=== PATIENT | female | born 1960 | race Caucasian/White ===

== ENCOUNTER 2022-05-23 08:39 | Emergency (ER) | payer OTHER ==
--- OUTSIDE RECORDS SUMMARY | 2022-05-23 08:42 | XMS REPORT | Continuity of Care Document ---
:1960 Author Organization [facility] t Address [address] [place] [address] Dr. [address]. [address] [place] [address] Care Team Providers Name Role Phone Asked, No Pcp Primary Care Physician Unavailable Jayesh FRANCO, Aracely Moreno Attending Clinician Messi FRANCO, Rubina Hennessy Attending Clinician Lolly Gandhi CRNA Attending Clinician [phone] Paco FRANCO, Phyllis Lyon Attending Clinician Jakob FRANCO, Belkis Attending Clinician Fernando FRANCO, George Wang Attending Clinician Danette Mott CRNA Attending Clinician ARACELY ALCANTAR Admitting Clinician Unavailable ATTJOAQUIN, BELKIS Admitting Clinician Unavailable Payers Payer Name Policy Type Policy Number Effective Date Expiration Date S ource Problems Condition Condition Condition Status Onset Resolution Last Treating Co mments Source Name Details Category Date Date Treatment Clinician Date Bronchiect Bronchiect Disease Active M ethodi asis with asis with 9 st acute acute 00:00: Hospita exacerbati exacerbati 00 l on on CHF CHF Disease Active [facility] (congestiv (congestiv 9 st e heart e heart 00:00: Hospita failure) failure) 00 l COPD COPD Disease Active [facility] (chronic (chronic 03-24 st obstructiv obstructiv 00:00: Ho spita e e 00 l pulmonary pulmonary disease) disease) Coronary Coronary Disease Active Metho di artery artery 03-24 st disease disease 00:00: Hospita involving involving 00 l grindstone grindstone coronary coronary artery artery Pulmonary Pulmonary Disease Active Met hodi hypertensi hypertensi 03-24 st on on 00:00: Hospita 00 l H/O mitral H/O mitral Disease Active M ethodi valve valve 03-24 st repair repair 00:00: Hospita 00 l Bronchitis Bronchitis Disease Active M ethodi 03-24 st 00:00: Hospita 00 l Allergies, Adverse Reactions, Alerts This patient has no known allergies or adverse reactions. Family History Family Member Diagnosis Comments Start Date Stop Date Source Natural father Lung disease [facility] Natural mother Heart disease [facility] Social History Social Habit Start Date Stop Date Quantity Comments Source History of Current smoker [facility] use Hospital Tobacco use and 2022-05-10 2022-05-10 Smokeless tobacco [facility] exposure 00:00:00 00:00:00 non-user Hospital Alcohol intake 2022-05-10 2022-05-10 Current drinker [facility] dist 00:00:00 00:00:00 of alcohol Hospital (finding) Sex Assigned At [birth year] [facility] 00:00:00 00:00:00 Hospital Smoking Status Start Date Stop Date Source Ex-smoker 2022-05-10 00:00:00 2022-05-10 00:00:00 [facility] Medications Ordered Filled Start Stop Current Ordering Indication Dosage Frequency Signature Comments Components Source Medication Medication Date Date Medication? Clinician (SIG) Name Name digOXIN 2021-07 Yes 125ug QD Take 1 [facility] (LANOXIN) 1-[address] 125 mcg 14:25: (125 mcg Hospit a (0.125 mg) 03 total) by l tablet mouth every morning. furosemide 2021-07 Yes 40mg QD Take 1 Metho di (LASIX) 40 1-08 tablet (40 st mg tablet 14:25: mg total) Hos fior 03 by mouth l daily. albuterol 2021-07 Yes 2{puff} Q6H Inhale 2 M ethodi (PROAIR 1-[address] HFA) 90 14:25: every 6 Hospita mcg/actuati 03 (six) l on inhaler hours as needed for wheezing. budesonide- 2021-07 Yes 2{puff} Q.5D Inhale 2 [facility] glycopyr-fo -[address] rmoterol 14:25: (two) Hospita (Breztri 03 times a l Aerosphere) day. 160-9-4.8 mcg/actuati on HFA aerosol inhaler verapamil 2021-07 Yes 120mg QD Take 1 [facility] di sustained -[address] release 14:25: (120 mg Hospita (CALAN-SR) 03 total) by l 120 MG SR mouth tablet every morning. apixaban 2021-07- No 5mg Q.5D Take 1 Method i (ELIQUIS) 5 07-11 11-07 tablet (5 st mg tablet 14:25: 00:00 mg total) Ho spita 03 :00 by mouth 2 l (two) times a day. metoprolol 2021-07 Yes 50mg QD Take 1 Metho di tartrate -07 tablet (50 st (LOPRESSOR) 14:49: mg total) H ospita 50 mg 33 by mouth l tablet every morning. sildenafil, 2021-07 Yes 20mg [id number] Take 20 mg [facility]i antihyperte -07 [id number] by mouth 3 [address] nsive, 14:49: 3D (three) Hospita (REVATIO) 33 times a l 20 mg day. tablet spironolact 2021-07 Yes 50mg QD Take 50 mg [facility] one [address] (ALDACTONE) 14:49: daily. [facility]osp [facility] 50 MG 33 l tablet warfarin 2021-07 Yes 5mg QD Take 1 [facility] (COUMADIN) 07 tablet (5 st 5 MG tablet 00:00: mg total) H ospita 00 by mouth l daily. Take 1 tablet (5mg) by mouth daily for 30 days. verapamiL 2021-07 No 120mg QD Take 1 Meth channing (CALAN) 120 07-07- tablet st MG tablet 15:45: 00:00 (120 mg [facility]osp [facility] 49 :00 total) by l mouth every morning. ALBUTEROL 2021-07- No 2{puff} Inhale 2 [facility] SULFATE 07-07-[address] INHL 15:45: 00:00 needed. Hospita 49 :00 l tiotropium No 1{capsu QD Place 1 [facility] (SPIRIVA) 09-09 le} capsule st 18 mcg per 11:00: 00:00 into Hospit a inhalation 09 :00 inhaler l capsule and inhale once daily. furosemide 40mg QD Take 40 mg [facility] (LASIX) 40 09-[address] mg tablet 11:00: 00:00 daily. Hospi ta 05 :00 l Vital Signs Vital Name Observation Time Observation Value Comments Source Systolic blood 2022-05-10 19:45:00 112 mm[Hg] [facility] pressure Diastolic blood 2022-05-10 19:45:00 53 mm[Hg] [facility] pressure Heart rate 2022-05-10 19:45:00 51 /min [facility] Respiratory rate 2022-05-10 19:45:00 21 /min [facility] Oxygen saturation in 2022-05-10 19:45:00 93 /min [facility] Arterial blood by Pulse oximetry Body temperature 2022-05-10 19:00:00 35.83 Gloria [facility] Body height 2022-05-10 16:25:00 170.2 cm [facility] Body weight 2022-05-10 16:25:00 59.013 kg [facility] BMI 2022-05-10 16:25:00 20.38 kg/m2 [facility] Procedures Procedure Date / Time Performing Clinician Source Performed EP ELECTROPHYSIOLOGY 2022-05-10 18:45:00 [facility] PROCEDURE ECG PRE/POST OP 2022-05-10 16:37:14 [facility] TYPE AND SCREEN 2022-05-10 16:35:00 [facility] MAGNESIUM LEVEL 2022-05-06 16:05:00 [facility] HC COMPLETE BLD COUNT 2022-05-06 16:05:00 [facility] W/AUTO DIFF COMPREHENSIVE METABOLIC 2022-05-06 16:05:00 [facility] PANEL ESTIMATED GFR 2022-05-06 16:05:00 [facility] COVID-19 QUALITATIVE RT-PCR 2022-05-06 16:05:00 [facility] PROTHROMBIN TIME WITH INR 2022-05-06 16:05:00 [facility] XR CHEST 2 VW 2021-12-22 21:16:00 Phyllis Antonio [facility] ECHOCARDIOGRAM 2021-09-09 19:23:58 Bel[facility] TRANSESOPHAGEAL W DOPPLER COLORFLOW ESTIMATED GFR 2021-09-09 17:08:00 [facility] POC PANEL 2021-09-09 17:08:00 Kenny Robertammed [facility] Plan of Care Planned Activity Planned Date Details Comments Source Future Scheduled 2022-05-13 HEPATITIS B VACCINES [facility] Test 09:23:15 (1 of 3 - 3-dose series) [code = HEPATITIS B VACCINES (1 of 3 - 3-dose series)] Future Scheduled 2022-05-13 COVID-19 VACCINE (#1) [facility] Test 09:23:15 [code = COVID-19 VACCINE (#1)] Future Scheduled 2022-05-13 Pneumococcal Vaccine: [facility] Test 09:23:15 Pediatrics (0 to 5 Years) and At-Risk Patients (6 to 64 Years) (1 - PCV) [code = Pneumococcal Vaccine: Pediatrics (0 to 5 Years) and At-Risk Patients (6 to 64 Years) (1 - PCV)] Future Scheduled 2022-05-13 Hepatitis C screening [facility] Test 09:23:15 (procedure) [code = 682034756] Future Scheduled 2022-05-13 Screening for [facility] Test 09:23:15 malignant neoplasm of cervix (procedure) [code = 260785415] Future Scheduled 2022-05-13 BREAST CANCER [facility] Test 09:23:15 SCREENING [code = BREAST CANCER SCREENING] Future Scheduled 2022-05-[address] [facility] Test 09:23:15 [code = COLONOSCOPY SCREENING] Future Scheduled 2022-05-13 SHINGLES VACCINES (1 [facility] Test 09:23:15 of 2) [code = SHINGLES VACCINES (1 of 2)] Future Scheduled 2022-05-13 [facility]ACCINE [facility] Test 09:23:15 [code = INFLUENZA VACCINE] Encounters Start End Encounter Admission Attending Care Care Encounter Source Date/Time Date/Time Type Type Clinicians Facility Department ID 2022-05-10 2022-05-10 Surgery Aracely Alcantar 1.2.840.1 [id number] [facility] 12:00:00 16:15:[id number] 3.430.2.7 Hospit a .3.855949 l .8 2022-05-10 2022-05-10 [facility] Aracely Alcantar 1.2.840.1 [id number] [facility] 10:21:00 14:25:00 Encounter Josh 58356.1.[address] 3.430.2.7 Hospit a .3.892397 l .8 2022-05-10 2022-05-10 Anesthesia Rubina Swenson 1.2.840. 1 [id number] [facility] 11:58:00 13:07:00 Event Lolly Gandhi 62862.1.[address] 3.430.2.7 Hospit a .3.357805 l .8 2022-05-10 2022-05-10 Outpatient ARACELY ALCANTAR [facility] [id number] Breaks 00:00:00 00:00:[address] 2022-05-10 2022-05-10 Travel 1.2.840.1 1.2.202.442 [id number] Method[facility] 00:00:00 00:00:[address] 3.430.2.7 0.2.7.3.698 Ho spita .3.461326 084.8 l .8 2022-05-06 2022-05-06 Lab Aracely Alcantar 1.2.840.1 [id number] [facility] 10:40:00 10:45:[address] 3.430.2.7 Hospit a .3.557096 l .8 2022-05-06 2022-05-06 Travel 1.2.840.1 1.2.293.035 [id number] [facility] 00:00:00 00:00:[address] 3.430.2.7 0.2.7.3.698 Ho spita .3.054068 084.8 l .8 2022-05-06 2022-05-06 Outpatient ARACELY ALCANTAR [facility] [id number] Breaks 00:00:00 00:00:[address] 2022-03-12 2022-03-12 [facility] Aracely Alcantar 1.2.840.1 [id number] [facility] 00:00:00 00:00:00 Orders Josh 03005.1.[address] 3.430.2.7 Hospit a .3.788371 l .8 2021-12-22 2021-12-22 [facility], 1.2.840.1 [id number] Method[facility] 16:00:00 23:59:00 Encounter Phyllis 77064.1.[address] [place] 3.430.2.7 Hospit a .3.129054 l .8 2021-12-22 2021-12-22 Travel 1.2.840.1 1.2.056.464 [id number] [facility] 00:00:00 00:00:[address] 3.430.2.7 0.2.7.3.698 Ho spita .3.717646 084.8 l .8 2021-12-22 2021-12-22 Transcribe [facility] 1.2.840.1 [id number] Method[facility] 00:00:00 00:00:00 Orders Phyllis 02491.1.[address] [place] 3.430.2.7 Hospit a .3.765508 l .8 2021-12-22 2021-12-22 Outpatient [facility] [id number] Breaks 00:00:00 00:00:00 PHYLLIS [address] 2021-09-09 2021-09-09 Hospital Attar, 1.2.840.1 [id number] Method[facility] 10:12:00 13:24:00 Encounter Belkis 35699.1.1 [address] 3.430.2.7 Hospit a .3.382209 l .8 2021-09-09 2021-09-09 Anesthesia George King 1.2.840.1 [id number] Methodi 11:53:00 12:24:00 Event Danette Mott N. [address]8717.1.[address] 3.430.2.7 Hospit a .3.172630 l .8 2021-09-09 2021-09-09 Outpatient ATTAR, [facility] [id number] Breaks 00:00:00 00:00:[address] 2021-09-02 2021-09-02 Travel 1.2.840.1 1.2.935.754 [id number] Methodi 00:00:00 00:00:[address] 3.430.2.7 0.2.7.3.698 Ho spita .3.683163 084.8 l .8 2021-09-02 2021-09-02 Transcribe Attar, 1.2.840.1 [id number] Methodi 00:00:00 00:00:00 Orders Belkis 87137.1.[address] 3.430.2.7 Hospit a .3.045214 l .8 Results Test Description Test Time Test Comments Results Result Comments Source ECG Pre/Post Op 2022-05-11 01:53:46 Test Item Value Reference Range Interpretation Comme nts Ventricular rate (test code = 253) Atrial rate (test code = 255) MD interval (test code = 266) QRSD interval (test code = 260) QT interval (test code = 264) QTC interval (test code = 265) QRS axis 1 (test code = 268) T wave axis (test code = 270) EKG impression (test code = 273) Sinus rhythm with occasional mimi ture ventricular complexes-Left axis deviation-Left ventricular hypertrophy with QRS widening and repolarization abnormality-Abnormal ECG-- Venecia TesfayeCOVID-19 qualitative [id number] 19:49:12 Test Item Value Reference Interpretation Comments Range Interpretation Negative results do (test code = not preclude COVID-19 7391241) infection and should not be used asthe sole basis for treatment or other patient management decisions. Negativeresults must be combined with clinical observations, patient history, andepidemiological information. COVID-19 Not-Detected Not-Detected DISCLAIMER:This qualitative RT-PCR test was result (test code performed using = 45899-5) the [employer]is[employer] m SARS-CoV-2 Assa y ([employer]). This assay is available for i n vitro diagnosti c use under Food and Drug Administration (FDA) Emergency Use Authorizati on (EUA) and has been verified f or clinical use by the [facility]. Information on the FDA policy for diagnostic tests for coronavirus disease- 2019 i s available at:https://www. fd a.gov/medical-d ev ices/emergency- si tuations-medica l- devices/faqs-di ag nostic-testing- sa rs-cov-2It is critical that health care providers and patients review the applicable fact sheet(s) i n interpreting or understanding t he test results th at are available upon request.METHODO LO GY:This assay utilizes reagen ts for nucleic aci d extraction, amplification, and real-time reverse supervisor filtration polymerase chapin n reaction. COVID-19 See link below for PDF Case Number: qualitative RT-PCR Lab Report [id number] (test code = 7070) [facility] [Presence] in Respiratory specimen by MIKEY with probe [id number] 14:49:12 Test Item Value Reference Range Interpretation Comments SARS-CoV-2 (COVID-19) RNA Not detected [Presence] in Respiratory specimen by MIKEY with probe detection (test code = 02377-1) Whether patient is employed in a Unknown healthcare setting (test code = 05414-6) Whether the patient has symptoms Unknown related to condition of interest (test code = 88128-6) Whether the patient was Unknown hospitalized for condition of interest (test code = 64153-8) Whether the patient was admitted Unknown to intensive care unit (ICU) for condition of interest (test code = 74898-7) Whether patient resides in a Unknown congregate care setting (test code = 57242-9) status (test code = Unknown 60643-6) Date and time of symptom onset Unknown (test code = 64442-4) NEIDA GUZMAN
[2022-05-23] MEDS ORDERED: FAMOTIDINE 20 MG/2 ML VIAL IV ONE (09:15)
[2022-05-23] MEDS ORDERED: NA CHLORIDE 0.9% 1,000 ML ONE (09:15)
[2022-05-23 10:03] LABS: Absolute Lymphocytes (CBC) 0.9 K/uL (0.7-4.9); Hematocrit 38.6 % (36.0-45.0); Lymphocytes % 19.9 % (15.3-44.8); MCV 90.8 fL (80-100); RBC Red Blood Cell Count 4.25 M/uL (3.86-4.86)
[2022-05-23 10:08] LABS: Protime INR 1.69
[2022-05-23 10:28] LABS: Bilirubin Direct 0.2 mg/dL (0-0.2); Bilirubin Total 0.7 mg/dL (0.2-1.0); Potassium 3.8 mmol/L (3.5-5.1); Protein, Total 6.1 g/dL (6.4-8.2); Thyroid Stimulating Hormone 1.49 uIU/mL (0.360-3.740)
[2022-05-23 10:39] LABS: SARS-COV-2 RT PCR NEGATIVE (NEGATIVE)
[2022-05-23 10:53] LABS: Troponin High Sensitivity 120.3 pg/mL (<58.9)
--- NOTE | 2022-05-23 11:43 | RAD REPORT ---
EXAM DESCRIPTION: CT - Chest For Pe Angio - 05/23/2022 11:13 am CLINICAL HISTORY: Chest pain. henoptysis COMPARISON: No comparisons TECHNIQUE: CT angiogram of the pulmonary arteries was performed with MIP. All CT scans are performed using dose optimization technique as appropriate and may include automated exposure control or mA/KV adjustment according to patient size. FINDINGS: No evidence of pulmonary thromboembolism. Thoracic aorta is suboptimally contrast opacified for assessment. Moderate cardiomegaly is present wi th pacer device present. 3 cm thrombus noted left atrial appendage. Moderate diffuse COPD. No significant pericardial or pleural fluid. No concerning bony finding. IMPRESSION: No evidence of pulmonary thromboembolism. Moderate emphysema.
--- NOTE | 2022-05-23 11:45 | RAD REPORT ---
EXAM DESCRIPTION: RAD - Chest Single View - 05/23/2022 9:51 am CLINICAL HISTORY: COUGH Chest pain. COMPARISON: Chest Pa And Lat (2 Views) dated 12/10/2020; Chest Pa And Lat (2 Views) dated 09/05/2019; Ch est Pa And Lat (2 Views) dated 03/08/2018 FINDINGS: Portable technique limits examination quality. The lungs are emphysematous but grossly clear. The heart is mildly enlarged with sternotomy wires pre sent. Single lead pacer/ defibrillator device. No displaced fractures. IMPRESSION: COPD. Cardiomegaly.
--- NOTE | 2022-05-23 11:47 | ER ---
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 Woke pt up out of sleep. states Tuesday and Tuesday had very uncomfortable chest pain. Has hx of Blood clot in the left atrium. Coronavirus screen: Vaccine status: Patient reports being unvaccinated. Client denies travel out of the [place] in the last 14 days. At this time, the client does not indicate any symptoms associated with coronavirus-19. Ebola Screen: Patient negative for fever greater than or equal to 101.5 degrees Fahrenheit, and additional compatible Ebola Virus Disease symptoms Patient denies exposure to infectious person. Patient denies travel to an Ebola-affected area in the 21 days before illness onset. No symptoms or risks identified at this time. Initial Sepsis Screen: Does the patient meet any 2 criteria? No. Patient's initial sepsis screen is negative. Does the patient have a suspected source of infection? No. Patient's initial sepsis screen is negative. Risk Assessment: Do you want to hurt yourself or someone else? Patient reports no desire to harm self or others. Onset of symptoms was May 23, 2022. 08:48 Method Of Arrival: EMS: [facility] db 08:48 Acuity: VILMA 2 db Triage Assessment: 09:00 General: Appears in no apparent distress. comfortable, Behavior is calm, cooperative, db appropriate for age, quiet. Pain: Complains of pain in chest Pain currently is 3 out of 10 on a pain scale. Quality of pain is described as Pain began x1 week. Neuro: Level of Consciousness is awake, alert, obeys commands, Oriented to person, place, time, situation, Appropriate for age. Cardiovascular: Reports chest pain. Respiratory: Airway is patent Respiratory effort is even, unlabored, Respiratory pattern is regular, symmetrical, Breath sounds are clear bilaterally. Historical: - Allergies: 12:01 No Known Allergies; db - PMHx: 12:01 Congestive heart failure; db - Immunization history:: Adult Immunizations unknown, Client reports having NOT received the Covid vaccine. - Social history:: Smoking status: Patient reports the use of cigarette tobacco products, smokes one pack cigarettes per day. - Family history:: not pertinent. Screenin:42 Abuse screen: Denies threats or abuse. Denies injuries from another. Nutritional db screening: No deficits noted. Tuberculosis screening: No symptoms or risk factors identified. Fall Risk None identified. No fall in past 12 months (0 pts). No secondary diagnosis (0 pts). IV access (20 points). Ambulatory Aid- None/Bed Rest/Nurse Assist (0 pts). Gait- Normal/Bed Rest/Wheelchair (0 pts) Mental Status- Oriented to own ability (0 pts). Total Trotter Fall Scale indicates No Risk (0-24 pts). Assessment: 09:30 Reassessment: Patient appears in no apparent distress at this time. No changes from db previously documented assessment. Patient and/or family updated on plan of care and expected duration. Pain level reassessed. Patient is alert, oriented x 3, equal unlabored respirations, skin warm/dry/pink. Neuro: No deficits noted. Level of Consciousness is awake, alert, obeys commands, Oriented to person, place, time, situation, Appropriate for age. Cardiovascular: No deficits noted. Reports chest pain. Respiratory: No deficits noted. Airway is patent Respiratory effort is even, unlabored, Respiratory pattern is regular, symmetrical. GI: No deficits noted. : No deficits noted. No signs and/or symptoms were reported regarding the genitourinary system. Derm: No deficits noted. No signs and/or symptoms reported regarding the dermatologic system. 10:30 Reassessment: Patient appears in no apparent distress at this time. No changes from db previously documented assessment. Patient and/or family updated on plan of care and expected duration. Pain level reassessed. Patient is alert, oriented x 3, equal unlabored respirations, skin warm/dry/pink. Vital Signs: 08:48 BP 140 / 76; Pulse 76; Resp 18; Temp 98.6(O); Pulse Ox 99% on R/A; Weight 58.97 kg (R); db Height 5 ft. 7 in. (170.18 cm); Pain 3/10; 09:30 BP 130 / 83; Pulse 73; Resp 18; Pulse Ox 97% on R/A; db 10:30 BP 136 / 68; Pulse 71; Resp 16; Pulse Ox 100% ; db 08:48 Body Mass Index 20.36 (58.97 kg, 170.18 cm) db Vitals: 10:30 Cardiac Rhythm Assessment Regular. db ED Course: 08:44 Patient arrived in ED. eb 08:49 Kush Washington MD is Attending Physician. nilsa 08:58 Triage completed. db 08:59 Jessica Chester, SAW is Primary Nurse. db 09:00 Maintain EMS IV. Dressing intact. Good blood return noted. Site clean \T\ dry. Gauge \T\ db site: 22 G left AC. 09:01 Arm band placed on right wrist. db 09:53 XRAY Chest (1 view) In Process Unspecified. EDMS 11:14 CT Chest For PE Angio In Process Unspecified. EDMS 11:46 Mazin Robert MD is Referral Physician. nilsa 11:46 Madonna Uriarte MD is Referral Physician. nilsa 12:01 Patient has correct armband on for positive identification. Bed in low position. Call db light in reach. Side rails up X 1. 12:01 No provider procedures requiring assistance completed. IV discontinued, intact, db bleeding controlled, No redness/swelling at site. Administered Medications: 08:20 Drug: NS 0.9% 1000 ml Route: IV; Rate: 125 ml/hr; Site: left antecubital; db 12:02 Follow up: Response: No adverse reaction; IV Status: Completed infusion; IV Intake: db 300ml 08:30 Drug: Pepcid (famotidine) 20 mg Route: IVP; Site: left antecubital; db 12:02 Follow up: Response: No adverse reaction db Medication: 12:01 VIS not applicable for this client. db Intake: 12:02 IV: 300ml; Total: 300ml. db Outcome: 11:47 Discharge ordered by . nilsa 12:01 Discharged to home ambulatory, with family. db 12:01 Condition: stable 12:01 Discharge instructions given to patient, Instructed on discharge instructions, follow up and referral plans. Demonstrated understanding of instructions. 12:03 Patient left the ED. db Signatures: Dispatcher [employer] Kush Spangler MD MD cha Botello, Elizabeth eb Benton, Danielle, RN RN db
--- NOTE | 2022-05-23 11:47 | EDPHYS ---
Physician Documentation [facility] Name: Willow Huitron Age: 61 yrs Sex: Female : 1960 Arrival Date: 05/23/2022 Time: 08:44 Bed 3 Private MD: STEPHAN Physician Kush Washington HPI: 05/23 10:02 This 61 yrs old Female presents to ER via EMS with complaints of nose bleed, nilsa cough up blood. 10:02 The patient presents with a nose bleed, and the bleeding resolved prior to arrival. nilsa Onset: The symptoms/episode began/occurred this morning. Modifying factors: The symptoms are alleviated by nothing. the symptoms are aggravated by nothing. The patient or guardian reports cough, that is intermittent. Severity of symptoms: At their worst the symptoms were mild, in the emergency department the symptoms have resolved, and did so just prior to arrival. Associated signs and symptoms: The patient has no apparent associated signs or symptoms. Associated signs and symptoms: Loss of consciousness: the patient experienced no loss of consciousness. Modifying factors: The symptoms are alleviated by nothing, the symptoms are aggravated by animal dander. Associated signs and symptoms: The patient has no apparent associated signs or symptoms. Severity of symptoms: At their worst the symptoms were mild in the emergency department the symptoms have improved mildly. Historical: - Allergies: 12:01 No Known Allergies; db - PMHx: 12:01 Congestive heart failure; db - Immunization history:: Adult Immunizations unknown, Client reports having NOT received the Covid vaccine. - Social history:: Smoking status: Patient reports the use of cigarette tobacco products, smokes one pack cigarettes per day. - Family history:: not pertinent. ROS: 10:02 Constitutional: Negative for fever, chills, and weight loss, Eyes: Negative for injury, nilsa pain, redness, and discharge, Neck: Negative for injury, pain, and swelling, Cardiovascular: Negative for chest pain, palpitations, and edema, Respiratory: Negative for shortness of breath, cough, wheezing, and pleuritic chest pain, Abdomen/GI: Negative for abdominal pain, nausea, vomiting, diarrhea, and constipation, Back: Negative for injury and pain, : Negative for injury, bleeding, discharge, and swelling, MS/Extremity: Negative for injury and deformity, Skin: Negative for injury, rash, and discoloration, Neuro: Negative for headache, weakness, numbness, tingling, and seizure, Psych: Negative for depression, anxiety, suicide ideation, homicidal ideation, and hallucinations, Allergy/Immunology: Negative for hives, rash, and allergies, Endocrine: Negative for neck swelling, polydipsia, polyuria, polyphagia, and marked weight changes, Hematologic/Lymphatic: Negative for swollen nodes, abnormal bleeding, and unusual bruising. 10:02 ENT: Positive for nose bleed. Exam: 10:02 Constitutional: This is a well developed, well nourished patient who is awake, alert, nilsa and in no acute distress. Head/Face: Normocephalic, atraumatic. Eyes: Pupils equal round and reactive to light, extra-ocular motions intact. Lids and lashes normal. Conjunctiva and sclera are non-icteric and not injected. Cornea within normal limits. Periorbital areas with no swelling, redness, or edema. ENT: Nares patent. No nasal discharge, no septal abnormalities noted. Tympanic membranes are normal and external auditory canals are clear. Oropharynx with no redness, swelling, or masses, exudates, or evidence of obstruction, uvula midline. Mucous membranes moist. Neck: Trachea midline, no thyromegaly or masses palpated, and no cervical lymphadenopathy. Supple, full range of motion without nuchal rigidity, or vertebral point tenderness. No Meningismus. Chest/axilla: Normal chest wall appearance and motion. Nontender with no deformity. No lesions are appreciated. Cardiovascular: Regular rate and rhythm with a normal S1 and S2. No gallops, murmurs, or rubs. Normal PMI, no JVD. No pulse deficits. Respiratory: Lungs have equal breath sounds bilaterally, clear to auscultation and percussion. No rales, rhonchi or wheezes noted. No increased work of breathing, no retractions or nasal flaring. Abdomen/GI: Soft, non-tender, with normal bowel sounds. No distension or tympany. No guarding or rebound. No evidence of tenderness throughout. Back: No spinal tenderness. No costovertebral tenderness. Full range of motion. Female : Normal external genitalia. Skin: Warm, dry with normal turgor. Normal color with no rashes, no lesions, and no evidence of cellulitis. MS/ Extremity: Pulses equal, no cyanosis. Neurovascular intact. Full, normal range of motion. Neuro: Awake and alert, GCS 15, oriented to person, place, time, and situation. Cranial nerves II-XII grossly intact. Motor strength 5/5 in all extremities. Sensory grossly intact. Cerebellar exam normal. Normal gait. Psych: Awake, alert, with orientation to person, place and time. Behavior, mood, and affect are within normal limits. 10:06 ECG was reviewed by the Attending Physician. [facility] Vital Signs: 08:48 BP 140 / 76; Pulse 76; Resp 18; Temp 98.6(O); Pulse Ox 99% on R/A; Weight 58.97 kg (R); db Height 5 ft. 7 in. (170.18 cm); Pain 3/10; 09:30 BP 130 / 83; Pulse 73; Resp 18; Pulse Ox 97% on R/A; db 10:30 BP 136 / 68; Pulse 71; Resp 16; Pulse Ox 100% ; db 08:48 Body Mass Index 20.36 (58.97 kg, 170.18 cm) db MDM: 08:49 Patient medically screened. [facility] 10:10 Differential diagnosis: spontaneous epistaxis. Differential Diagnosis: Influenza Upper nilsa Respiratory Infection Viral Syndrome Pneumonia. Data reviewed: vital signs, nurses notes, lab test result(s), EKG, radiologic studies, CT scan, plain films. 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 Test interpretation: by ED physician or midlevel provider: ECG, plain radiologic studies. Counseling: I had a detailed discussion with the patient and/or guardian regarding: the historical points, exam findings, and any diagnostic results supporting the discharge/admit diagnosis, lab results, radiology results. 11:44 Physician consultation: Mazin Robert MD and will see patient in office, tammy [facility] 7.5,5,5, 7.5. 11:48 ED course: explained to patient to take 7.5 today, 5, 5, 7.5, per Dr Robert. [facility] 05/23 08:51 Order name: Basic Metabolic Panel; Complete Time: 10:56 nilsa 05/23 08:51 Order name: CBC with Diff; Complete Time: 10:11 nilsa 05/23 08:51 Order name: LFT's; Complete Time: 10:[address] [facility] 05/23 08:51 Order name: Magnesium; Complete Time: 10:[address] [facility] 05/23 08:51 Order name: NT PRO-BNP; Complete Time: 10:[address] [facility] 05/23 08:51 Order name: PT-INR; Complete Time: 10:[address] [facility] 05/23 08:51 Order name: Troponin HS; Complete Time: 10:[address] [facility] 05/23 08:51 Order name: XRAY Chest (1 view); Complete Time: 11:[address] [facility] 05/23 08:51 Order name: Lipase; Complete Time: 10:[address] [facility] 05/23 08:51 Order name: Lactate w/ 2H reflex if indic.; Complete Time: 10:[address] [facility] 05/23 08:51 Order name: CT Chest For PE Angio; Complete Time: 11:[address] [facility] 05/23 08:51 Order name: TSH; Complete Time: 10:[address] [facility] 05/23 08:51 Order name: COVID-19/FLU A+B; Complete Time: 10:[address] [facility] 05/23 08:51 Order name: EKG; Complete Time: 08:[address] [facility] 05/23 08:51 Order name: Cardiac monitoring; Complete Time: 09:[address] [facility] 05/23 08:51 Order name: EKG - Nurse/Tech; Complete Time: 09:[address] [facility] 05/23 08:51 Order name: IV Saline Lock; Complete Time: 09:[address] [facility] 05/23 08:51 Order name: Labs collected and sent; Complete Time: 09:[address] [facility] 05/23 08:51 Order name: O2 Per Protocol; Complete Time: 09:[address] [facility] 05/23 08:51 Order name: O2 Sat Monitoring; Complete Time: 09:[address] [facility] EC:06 Rate is 72 beats/min. Rhythm is regular. QRS [place] is Normal. [place] interval is normal. QRS nilsa interval is normal. QT interval is normal. No Q waves. T waves are Normal. No ST changes noted. Clinical impression: Normal ECG and No evidence of ischemia. Interpreted by me. Reviewed by me. 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, 1.69 nilsa - Epistaxis nilsa - Cough nilsa - COPD/ Chronic obstructive pulmonary disease, unspecified nilsa - Cardiomegaly nilsa Followup: nilsa - With: Private Physician - When: 2 - 3 days - Reason: Recheck today's complaints, Continuance of care, Re-evaluation by your physician Followup: nilsa - With: - When: 2 - 3 days - Reason: Recheck today's complaints, Continuance of care, Re-evaluation by your physician Followup: nilsa - With: - When: 2 - 3 days - Reason: Recheck today's complaints, Re-evaluation by your physician Discharge Instructions: - Discharge Summary Sheet nilsa - Atrial Fibrillation nilsa - Nosebleed, Adult nilsa - Warfarin Coagulopathy nilsa - Cough, Adult, [id number] nilsa - Chronic Obstructive Pulmonary Disease nilsa - Cough, Adult nilsa - Nosebleed, Adult, [id number] nilsa - Atrial Fibrillation, [id number] nilsa - Bleeding Precautions When on Anticoagulant Therapy, Adult nilsa Forms: - Medication Reconciliation Form nilsa - Thank You Letter nilsa - Antibiotic Education nilsa - Prescription Opioid Use nilsa Signatures: Dispatcher [employer] Kush Spangler MD MD cha Benton, Danielle, RN RN db
[2022-05-23 12:07] VITALS: TEMP 98.6
[2022-05-23 12:09] VITALS: BP 136/68; O2SAT 100
--- NOTE | 2022-05-24 15:31 | EKG ---
Test Date: 2022-05-23 Test Time: 09:37:37 Freelance Photographer: SAMANTA MEASUREMENT RESULTS: Intervals: Rate: 72 UT: 194 QRSD: 116 QT: 396 QTc: 433 Roggen: P: 53 UT: 194 QRS: -40 T: 106 INTERPRETIVE STATEMENTS: Normal sinus rhythm with sinus arrhythmia Left axis deviation Left ventricular hypertrophy with QRS widening and repolarization abnormality Cannot rule out Septal infarct, age undetermined Abnormal ECG Compared to ECG 10/28/2011 21:15:59 Myocardial infarct finding now present Prolonged QT interval no longer present Electronically Signed On 05-24-22 15:28:39 SERVICES MANAGER by Jose Cavazos
== END 2022-05-23 12:03 | disposition home or self-care (01) ==
LOC: ER 08:39
DX: R04.0 Epistaxis (principal); R05.9 Cough, unspecified; J44.9 Chronic obstructive pulmonary disease, unspecified; I51.7 Cardiomegaly; I50.9 Heart failure, unspecified; Z79.01 Long term (current) use of anticoagulants; F17.210 Nicotine dependence, cigarettes, uncomplicated; Z20.822 Contact with and (suspected) exposure to COVID-19
CPT/HCPCS: 96361; 93005; 85025; 80048; 36415; 83735; 85610; 80076; 83605; 84443; 84484; 83690; 83880; 0240U; 71275; 71045; 96374; 99283; Q9967; J7030